=== PATIENT | female | born 1995 | race Two or more races ===

== ENCOUNTER 2017-03-11 01:27 | Emergency (ER) | payer SELFPAY ==
[~2017-03-11] VITALS: Ht 165.1 cm; Wt 86.4 kg
[~2017-03-11 01:27] MED LIST: DOCU-131 PO; IBUP-1222 PO; OXYC-302 PO
[2017-03-11 03:23] VITALS: BP 119/74
== END 2017-03-11 03:24 | disposition home or self-care (01) ==
LOC: ED 02:44
DX: S83.92XA Sprain of unspecified site of left knee, initial encounter (principal); M25.462 Effusion, left knee; X50.1XXA Overexertion from prolonged static or awkward postures, initial encounter; Y93.89 Activity, other specified; Y99.8 Other external cause status; Y92.89 Other specified places as the place of occurrence of the external cause
CPT/HCPCS: 99284